=== PATIENT | male | born 1950 | race African-American/Black ===

== ENCOUNTER 2019-06-27 07:06 | Inpatient (IN) ==
[2019-06-27] MEDS ORDERED: SODIUM CHLORIDE 0.9% 1,000 ML IV STA (07:40)
[2019-06-27] MEDS ORDERED: ONDANSETRON 4 MG/2 ML VIAL IV STA (07:40)
[2019-06-27] MEDS ORDERED: PANTOPRAZOLE 40 MG VIAL IV STA (07:40)
[2019-06-27 08:00] LABS: Basophils % 0.3 % (0.0-0.8); Eosinophils # 0.1 10*3/uL (0.0-0.87); Eosinophils % 1.3 % (0.00-10.9); Hematocrit 29.1 VOL% (42.0-52.0); Immature Granulocytes % 0.3 %; Immature Granulocytes Absolute 0.01 #; Lymphocytes # 1.2 10*3/uL (1.4-4.0); Lymphocytes % 30.7 % (21.2-54.2); Mean Corpuscular HGB Conc 30.9 GM/DL (32-36); Mean Corpuscular Volume 95.1 FL (87-102); Mean Platelet Volume 9.9 FL (9.6-12.0); Monocytes % 10.6 % (1.7-12.7); Neutrophils % 56.8 % (38.7-73.9); Platelet Count 180 T/CUMM (130-400); Red Blood Count 3.06 MC/CUMM (3.8-5.5); Red Cell Distribution Width 15.7 % (9.3-17.3); White Blood Count 3.9 T/CUMM (4-12)
[2019-06-27 08:07] LABS: Partial Thromboplastin Time 28.7 SECS (20.8-36.0)
[2019-06-27 08:23] LABS: Alanine Aminotransferase 11 U/L (16-61); Albumin 2.7 G/DL (3.4-5.0); Alkaline Phosphatase 89 U/L (45-117); Aspartate Amino Transferase 12 U/L (0-37); Bilirubin,Total < 0.39 MG/DL (0.2-1.0); Blood Urea Nitrogen 18 MG/DL (7-18); Calcium 7.9 MG/DL (8.5-10.1); Estimated Glom Filtration Rate 86 ML/MIN; Glucose 117 MG/DL (74-106); Osmolality,Calculated 288.8 MOS/KG (273-304); Total Protein 6.2 G/DL (6.4-8.3)
[2019-06-27] MEDS ORDERED: PROMETHAZINE 25 MG/1 ML VIAL IM PRN (09:25)
[2019-06-27] MEDS ORDERED: ONDANSETRON 4 MG/2 ML VIAL IV PRN (09:25)
[2019-06-27] MEDS ORDERED: ACETAMINOPHEN 325 MG TABLET PO PRN (09:25)
[2019-06-27] MEDS ORDERED: SODIUM CHLORIDE 0.9% 1,000 ML IV PRN (09:25)
[2019-06-27] MEDS ORDERED: POTASSIUM CHLORIDE 20 MEQ TABLET PO STA (09:34)
[2019-06-27] MEDS ORDERED: BISACODYL 5 MG TABLET PO ONE (13:00)
[2019-06-27 14:02] LABS: Thyroid Stimulating Hormone 1.56 uIU/ml (0.358-3.74)
[2019-06-27 14:49] LABS: Hematocrit 27.9 VOL% (42.0-52.0); Hemoglobin 8.3 GM/DL (14.0-18.0)
[2019-06-27] MEDS ORDERED: POLYETHYLENE GLYCOL POWDER 255 GM BOTTLE PO ONE (15:00)
[2019-06-27] MEDS: FAMOTIDINE 20 MG/2 ML VIAL IV SCH ×2 (16:38→21:19)
[2019-06-27] MEDS: SODIUM CHLORIDE 0.9% 1,000 ML IV SCH ×2 (17:44→19:59)
[2019-06-27 20:24] LABS: % Iron Saturation 25.9 % (18-50)
[2019-06-27 21:01] LABS: Hematocrit 26.2 VOL% (42.0-52.0); Hemoglobin 8.2 GM/DL (14.0-18.0)
[2019-06-27 21:09] LABS: Folate 11.1 NG/ML (5.4-24.0)
[2019-06-27] MEDS: PANTOPRAZOLE 40 MG TABLET PO SCH (21:19)
[2019-06-28] MEDS: SODIUM CHLORIDE 0.9% 1,000 ML IV SCH (01:24)
[2019-06-28 06:11] LABS: Basophils % 0.3 % (0.0-0.8); Eosinophils # 0.1 10*3/uL (0.0-0.87); Eosinophils % 1.9 % (0.00-10.9); Hematocrit 23.9 VOL% (42.0-52.0); Hemoglobin 7.3 GM/DL (14.0-18.0); Immature Granulocytes % 0.5 %; Immature Granulocytes Absolute 0.02 #; Lymphocytes # 1.8 10*3/uL (1.4-4.0); Lymphocytes % 48.7 % (21.2-54.2); Mean Corpuscular HGB Conc 30.5 GM/DL (32-36); Mean Corpuscular Volume 96.4 FL (87-102); Mean Platelet Volume 10.2 FL (9.6-12.0); Monocytes % 11.5 % (1.7-12.7); Neutrophils % 37.1 % (38.7-73.9); Platelet Count 155 T/CUMM (130-400); Red Blood Count 2.48 MC/CUMM (3.8-5.5); Red Cell Distribution Width 15.8 % (9.3-17.3); White Blood Count 3.7 T/CUMM (4-12)
[2019-06-28 06:16] LABS: PT Patient Result 11.3 SECS (9.6-12.2)
[2019-06-28 06:35] LABS: Eosinophils 3 % (0-10); Hypochromasia 1+; Lymphocytes 46 % (20-55); Ovalocytes Slight; Platelet Estimate Adequate; Segmented Neutrophils 45 % (50-85); Total Cells Counted 100
[2019-06-28 06:52] LABS: Alanine Aminotransferase 9 U/L (16-61); Albumin 2.5 G/DL (3.4-5.0); Alkaline Phosphatase 69 U/L (45-117); Aspartate Amino Transferase 11 U/L (0-37); Bilirubin,Total < 0.39 MG/DL (0.2-1.0); Blood Urea Nitrogen 10 MG/DL (7-18); Calcium 8.1 MG/DL (8.5-10.1); Estimated Glom Filtration Rate 95 ML/MIN; Glucose 89 MG/DL (74-106); HDL Cholesterol 41 MG/DL (40-60); Osmolality,Calculated 291.3 MOS/KG (273-304); Risk Ratio 2.95; Total Protein 5.6 G/DL (6.4-8.3); Triglycerides 78 MG/DL (2-150); VLDL CHOLESTEROL 15.6 MG/DL
[2019-06-28] MEDS ORDERED: LACTATED RINGERS 1,000 ML IV SCH (08:00)
[2019-06-28] MEDS ORDERED: SODIUM CHLORIDE 0.45% 1,000 ML IV SCH (08:00)
[2019-06-28] MEDS: PANTOPRAZOLE 40 MG TABLET PO SCH ×2 (09:26→20:59)
[2019-06-28] MEDS: FAMOTIDINE 20 MG/2 ML VIAL IV SCH (09:47)
[2019-06-28] MEDS ORDERED: PROPOFOL 200 MG/20 ML VIAL IV ONE (10:00)
[2019-06-28] MEDS: SODIUM CHLORIDE 0.9% 500 ML IV SCH (10:00)
[2019-06-28] MEDS ORDERED: LIDOCAINE 2% 5 ML VIAL ONE (10:00)
[2019-06-28 12:54] LABS: Hematocrit 27.7 VOL% (42.0-52.0); Hemoglobin 8.5 GM/DL (14.0-18.0)
[2019-06-28 16:03] LABS: Apearance,Urine CLEAR (Clear); Bilirubin,Urine Negative (Negative); Blood, Urine Negative (Negative); Glucose,Urine (UA) Negative (Negative); Ketones,Urine Negative (Negative); Mucus,Urine Occasional /LPF (Occasional); Nitrite,Urine Negative (Negative); Protein,Urine Negative; RBC,Urine <1 /HPF (0-4); Urine Color Straw (Yellow); Urine Specific Gravity 1.005 (1.001-1.035); Urine Urobilinogen < 2.0 EU/DL (0.2-1.0); WBC,Urine 1 /HPF (0-6)
[2019-06-28] MEDS: LACTATED RINGERS 1,000 ML IV SCH (18:19)
[2019-06-28 20:04] LABS: Hematocrit 29.1 VOL% (42.0-52.0); Hemoglobin 9.2 GM/DL (14.0-18.0)
[2019-06-29] MEDS: LACTATED RINGERS 1,000 ML IV SCH ×2 (04:15→20:13)
[2019-06-29 05:19] LABS: Basophils % 0.4 % (0.0-0.8); Eosinophils # 0.1 10*3/uL (0.0-0.87); Eosinophils % 1.2 % (0.00-10.9); Hematocrit 32.6 VOL% (42.0-52.0); Hemoglobin 10.3 GM/DL (14.0-18.0); Immature Granulocytes % 0.4 %; Immature Granulocytes Absolute 0.02 #; Lymphocytes # 1.8 10*3/uL (1.4-4.0); Lymphocytes % 35.9 % (21.2-54.2); Mean Corpuscular HGB Conc 31.6 GM/DL (32-36); Mean Corpuscular Volume 93.7 FL (87-102); Mean Platelet Volume 9.8 FL (9.6-12.0); Monocytes % 10.1 % (1.7-12.7); Platelet Count 183 T/CUMM (130-400); Red Blood Count 3.48 MC/CUMM (3.8-5.5); Red Cell Distribution Width 15.9 % (9.3-17.3); White Blood Count 5.1 T/CUMM (4-12)
[2019-06-29 05:57] LABS: Albumin 2.9 G/DL (3.4-5.0); Bilirubin,Total 0.5 MG/DL (0.2-1.0); Calcium 8.2 MG/DL (8.5-10.1); Osmolality,Calculated 290.6 MOS/KG (273-304); Total Protein 6.4 G/DL (6.4-8.3)
[2019-06-29] MEDS ORDERED: LACTATED RINGERS 1,000 ML IV SCH (08:00)
[2019-06-29] MEDS: PANTOPRAZOLE 40 MG TABLET PO SCH ×2 (09:20→20:14)
[2019-06-29] MEDS ORDERED: PROPOFOL 200 MG/20 ML VIAL IV ONE (09:32)
[2019-06-29] MEDS ORDERED: LIDOCAINE 2% 5 ML VIAL ONE (09:32)
[2019-06-29] MEDS: SODIUM CHLORIDE 0.9% 500 ML IV SCH (11:20)
[2019-06-30 04:53] LABS: Basophils % 0.2 % (0.0-0.8); Eosinophils # 0.1 10*3/uL (0.0-0.87); Eosinophils % 1.7 % (0.00-10.9); Hematocrit 26.3 VOL% (42.0-52.0); Hemoglobin 8.4 GM/DL (14.0-18.0); Immature Granulocytes % 0.2 %; Immature Granulocytes Absolute 0.01 #; Lymphocytes # 1.7 10*3/uL (1.4-4.0); Mean Corpuscular HGB Conc 31.9 GM/DL (32-36); Mean Corpuscular Volume 92.6 FL (87-102); Mean Platelet Volume 9.9 FL (9.6-12.0); Monocytes % 10.2 % (1.7-12.7); Neutrophils % 45.7 % (38.7-73.9); Platelet Count 156 T/CUMM (130-400); Red Blood Count 2.84 MC/CUMM (3.8-5.5); Red Cell Distribution Width 15.6 % (9.3-17.3); White Blood Count 4.1 T/CUMM (4-12)
[2019-06-30 05:19] LABS: Calcium 7.6 MG/DL (8.5-10.1); Osmolality,Calculated 283.1 MOS/KG (273-304)
[2019-06-30] MEDS: LACTATED RINGERS 1,000 ML IV SCH (06:59)
[2019-06-30] MEDS ORDERED: MAGNESIUM SULF RIDER 2 GM in PREMIX 1 EACH IV ONE (07:42)
[2019-06-30 08:34] LABS: Hematocrit 28.6 VOL% (42.0-52.0); Hemoglobin 9.1 GM/DL (14.0-18.0)
[2019-06-30] MEDS: PANTOPRAZOLE 40 MG TABLET PO SCH (08:49)
[2019-06-30 16:05] VITALS: BP 155/67
== END 2019-06-30 16:49 | disposition home or self-care (01) | DRG 378 ==
LOC: N.ED 07:06 → N.EDINP 09:26 → N.2W 11:36 → N.5E 13:19
PROVIDERS: ADMIT Internal Medicine; ATTEND Internal Medicine